=== PATIENT | male | born 1995 | race Caucasian/White ===

== ENCOUNTER 2017-12-12 08:28 | Emergency (ER) | payer BC, OTHER ==
[~2017-12-12] VITALS: Ht 177.8 cm; Wt 82.0 kg
[~2017-12-12 08:28] MED LIST: DOCU-105 PO
[2017-12-12 08:35] VITALS: TEMP 36.5; Ht 177.8 cm; Wt 82.0 kg
[2017-12-12 08:38] VITALS: O2SAT 100
[2017-12-12] MEDS ORDERED: ONDANSETRON INJ 2 MG/ML 2 ML VIAL IV STA (08:40)
[2017-12-12] MEDS ORDERED: SODIUM CHLORIDE 0.9% 1000ML 1,000 ML IV STA ×2 (08:40)
[2017-12-12] MEDS ORDERED: MoRPHine SULFATE 4 MG/ML 1 ML CARP\\VIAL IV PRN (08:45)
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
[2017-12-12 09:09] LABS: BASO % 0.4 %; BASO ABS # 0.02 K/uL (0-0.2); EOS ABS # 0.11 K/uL (0-0.5); HEMATOCRIT 41.4 % (42-52); HEMOGLOBIN 14.3 g/dL (14.0-18.0); IG# 0.01 K/uL (0.00-0.02); LYMPH % 30.6 %; MEAN CELL VOLUME 87.9 fL (80-100); MEAN CORPUSCULAR HEMOGLOBIN 30.4 pg (25-34); MEAN CORPUSCULAR HGB CONC 34.5 g/dl (32-36); MONO % 6.8 %; MONO ABS # 0.38 K/uL (0.11-0.59); NEUT ABS # 3.34 K/uL (1.4-6.5); PLATELET COUNT 210 K/uL (130-400); RED CELL DISTRIBUTION WIDTH CV 12.8 % (11.5-14.5); RED CELL DISTRIBUTION WIDTH SD 41.5 fL (36.4-46.3); WHITE BLOOD COUNT 5.56 K/uL (4.8-10.8)
[2017-12-12 09:25] LABS: ALBUMIN 4.2 gm/dl (3.4-5.0); CALCIUM 8.6 mg/dl (8.5-10.1); CREATININE 0.95 mg/dl (0.60-1.40); POTASSIUM 3.4 mmol/L (3.5-5.1)
[2017-12-12 09:28] LABS: TOTAL PROTEIN 7.1 gm/dl (6.4-8.2)
--- NOTE | 2017-12-12 09:52 | DIAGNOSTIC IMAGING REPORT ---
ABDOMEN 2VIEW W/PA CHEST RTN CLINICAL HISTORY: 22 years-old Male presenting with vomiting, hx of SBO. TECHNIQUE: PA view of the chest and supine and upright views of the abdomen were obtained. COMPARISON: 04/29/2015. FINDINGS: Cardiomediastinal silhouette normal. Lungs and pleural spaces clear. Nonobstructive bowel gas pattern. Moderate stool burden in the right and transverse colon. No gross pneumoperitoneum. Allowing for bowel gas and stool, no calcifications to suggest nephrolithiasis. Osseous structures normal. IMPRESSION: 1. No acute cardiopulmonary disease. 2. No radiographic evidence of acute intra-abdominal pathology. Electronically signed by: Dariusz Bullock M.D. 12/12/2017 9:50 AM Dictated Date/Time: 12/12/2017 9:50 AM
[2017-12-12] MEDS ORDERED: KETOROLAC TROMETHAMINE 30 MG/ML VIAL IV STA (10:35)
[2017-12-12] MEDS ORDERED: ONDA4TAB10 SL (12:41)
[2017-12-12 12:48] VITALS: BP 124/72; PULSE 80; O2SAT 99
== END 2017-12-12 13:00 | disposition home or self-care (01) ==
LOC: C.EDB 08:29 → C.EDA 13:00
DX: K59.00 Constipation, unspecified (principal); Z98.890 Other specified postprocedural states